=== PATIENT | female | born 1975 | race Two or more races ===

== ENCOUNTER 2024-12-04 07:50 | Emergency (ER) | payer MEDICAID, OTHER ==
[~2024-12-04] VITALS: Ht 165.1 cm; Wt 84.7 kg
[2024-12-04 08:17] VITALS: BP 134/83; PULSE 84; RESP 18; TEMP 97.9; O2SAT 97
--- NOTE | 2024-12-04 08:47 | DVH ---
EXAM: XY CHEST TWO VIEWS ROUTINE CLINICAL HISTORY: SOB COUGH COMPARISON: None TECHNIQUE: Frontal and lateral view of the chest was obtained FINDINGS: Lines and Tubes: None Lungs: No focal consolidation. Pleura: No effusion. No pneumothorax. Cardiomediastinal contours: Unremarkable Bones: No acute osseous abnormality. IMPRESSION: No acute cardiopulmonary disease.
[2024-12-04] MEDS: ALBUTEROL SULF 2.5 MG/0.5ML(0.5%) NEB SOLN NEB ONE (08:49)
[2024-12-04] MEDS: IPRATROPIUM BROM 0.5 MG/2.5ML INH SOL NEB ONE (08:51)
[2024-12-04] MEDS ORDERED: CETI5TAB6 PO (09:12)
[2024-12-04] MEDS ORDERED: ALBU108A5 IN (09:12)
[2024-12-04] MEDS ORDERED: METH4PAK PO (09:12)
--- NOTE | 2024-12-04 09:12 | ED.PDOC ---
SOB-HPI HPI Comments 49-year-old female presents for a possible asthma exacerbation that started two days ago. No history of asthma in the past. Only has a history of hyperlipidemia. Possible onset:recent URI Not taken medication for the symptoms listed above Denies nighttime awakenings. Denies use of inhaler. Denies hospitalizations. Denies fevers chills night sweats regular cough. 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 Family History Family History: Reviewed,noncontributory to illness Social History Smoker: Non-Smoker Alcohol: Denies ETOH Use Drugs: Denies Drug Use All Other Systems: Reviewed and Negative (Per HPI) Physical Exam General Appearance: No Apparent Distress, Normal HEENT: Normal ENT Inspection, Pharynx Normal, TMs Normal Neck: Full Range of Motion, Non-Tender, Normal, Normal Inspection Respiratory: Chest Non-Tender, No Accessory Muscle Use, No Respiratory Distress, Wheezing Cardiovascular: No Edema, No JVD, No Murmur, No Gallop, Normal Peripheral Pulses, Regular Rate/Rhythm Breast Exam: Deferred Gastrointestinal: No Organomegaly, Non Tender, No Pulsatile Mass, Normal Bowel Sounds, Soft Genitalia: Deferred Pelvic: Deferred Rectal: Deferred Extremities: No calf tenderness, Normal capillary refill, Normal inspection, Normal range of motion, Non-tender, No pedal edema Musculoskeletal : Apperance: Normal Neurologic: Alert, manufacturing helper II-XII nml as Tested, No Motor Deficits, Normal Affect, Normal Mood, No Sensory Deficits Cerebellar Function: Normal Reflexes: Normal Skin: Dry, Normal Color, Warm Lymphatic: No Adenopathy Was a procedure done? Was a procedure done?: No Differential Dx Differential Diagnosis: Asthma X-Ray, Labs, Meds, VS Vital Signs Date Time Temp Pulse Resp B/P (MAP) Pulse Ox O2 Delivery O2 Flow Rate FiO2 12/04/24 08:17 84 18 97 Room Air 12/04/24 08:17 97.9 84 18 134/83 (100) 97 97.9 12/04/24 08:09 18 97 Room Air* 0 21 12/04/24 08:06 97.9 84 18 134/83 (100) 97 97.9 Lab Test 12/04/24 08:45 Range/Units White Blood Count Pending Red Blood Count Pending Hemoglobin Pending Hematocrit Pending Mean Corpuscular Volume Pending Mean Corpuscular Hemoglobin Pending Mean Corpuscular Hemoglobin Concent Pending Red Cell Distribution Width Pending Platelet Count Pending Mean Platelet Volume Pending Neutrophils (%) (Auto) Pending Lymphocytes (%) (Auto) Pending Monocytes (%) (Auto) Pending Basophils (%) (Auto) Pending Neutrophils # (Auto) Pending Lymphocytes # (Auto) Pending Monocytes # (Auto) Pending Sodium Level Pending Potassium Level Pending Chloride Level Pending Carbon Dioxide Level Pending Anion Gap Pending Blood Urea Nitrogen Pending Creatinine Pending Glomerular Filtration Rate Calc Pending BUN/Creatinine Ratio Pending Serum Glucose Pending Calcium Level Pending Current Medications Medications (Trade) Dose Ordered Sig/Ted Route Start Time Stop Time Status Last Admin Albuterol (Ventolin Medneb) 5 mg ONCE ONCE NEB 12/04/24 08:15 12/04/24 08:18 DC 12/04/24 08:49 Ipratropium Bradford (Atrovent Medneb) 0.5 mg ONCE ONCE NEB 12/04/24 08:15 12/04/24 08:18 DC 12/04/24 08:51 X-Ray, Labs, Meds, VS Comment Patient presents with cough and expiratory wheezing, without tachypnea and accessory muscle use but indicative of asthma exacerbation. Unclear cause of the asthma exacerbation. Differentials considered but not limited to: PNA, bronchiolitis, Foreign body airway obstruction, GERD. I also considered pulmonary embolism, CHF, COPD, however, this is less likely as the patients pulse oximetry is with normal limits and ambulating without difficulty. Chest x-ray was obtained, and interpreted independently by myself as not showing focal consolidations or lobar pneumonia. Discussed viral etiologies with the patient however viral testing was not indicated as it does not belt changer and the patient was overall well-a ppearing. While in the ED, the patient was treated with Multiple rounds of Albuterol and Atrovent On reevaluation symptoms improved with treatment in the ED. Vital signs and exam reassuring. Lungs clear no wheezing. No labored breathing. No signs of res piratory distress. Patient was prescribed a short course of steroids. Inhaler prescribed as needed. Strict return precautions were discussed. Follow up with PCP 2-3 days. Time of 1ST Reevaluation: 09:08 Reevaluation 1ST: Improved Patient Education/Counseling: Diagnosis, Treatment Family Education/Counseling: Diagnosis, Treatment Departure 1 Departure Time of Disposition: 09:11 Impression: Primary Impression: Asthma Qualified Codes: J45.21 - Mild intermittent asthma with (acute) exacerbation Disposition: HOME / SELF CARE / HOMELESS Condition: Fair e-Prescriptions Cetirizine Hcl (Cetirizine Hcl) 5 Mg Tab 10 MG PO DAILY for 30 Days, #60 TAB 0 Refills Prov: FIORDALIZA SANCHEZ NP 12/04/24 Albuterol Sulfate (Albuterol Sulfate Hfa) 108 Mcg/Act Aer 108 MCG IN Q6HP PRN for 30 Days, #1 AER 0 Refills Prov: FIORDALIZA SANCHEZ NP 12/04/24 Methylprednisolone (Medrol Dosepak) 4 Mg Gilbert 4 MG PO UD for 7 Days, #21 TAB 0 Refills UAD Prov: FIORDALIZA SANCHEZ NP 12/04/24 Critical Care Note Critical Care Time?: No Stability Stability form required: No Heart Score Heart Score: Heart Score Response (Comments) Value History N/A 0 EKG N/A 0 Age N/A 0 Risk Factors N/A 0 Troponin N/A 0 Total 0 FIORDALIZA SANCHEZ NP Dec 04, 2024 09:12
[2024-12-04 09:15] LABS: Basophils # (auto) 0.1 10 ^3/uL (0-0.2); Basophils % (auto) 0.9 % (0.0-2.0); Eosinophils # (auto) 1.3 10 ^3/uL (0-0.8); Eosinophils % (auto) 12.9 % (0.0-7.0); Hematocrit 43.8 % (36.0-46.0); Hemoglobin 14.9 g/dL (12.2-16.2); Lymphocytes # (auto) 2.7 10 ^3/uL (0.4-5.4); Lymphocytes % (auto) 26.8 % (10.0-50.0); Mean Corpuscular Hemoglobin 28.9 pg (28.0-32.0); Mean Corpuscular Volume 84.9 fL (80.0-100.0); Monocytes # (auto) 0.6 10 ^3/uL (0-1.3); Monocytes % (auto) 5.5 % (0.0-12.0); Neutrophils # (auto) 5.5 10 ^3/uL (1.6-8.6); Neutrophils % (auto) 53.9 % (37.0-80.0); Platelet Count (auto) 317 10^3/uL (140-450); Red Blood Cells 5.16 10^6/uL (4.0-5.20); Red Cell Distribution Width 13.5 % (11.8-14.3); White Blood Cell 10.1 10^3/uL (4.4-10.8)
[2024-12-04 09:23] LABS: Chloride 104 mmol/L (98-107); Potassium 4.2 mmol/L (3.5-5.1); Sodium 138 mmol/L (136-145)
[2024-12-04 09:24] LABS: Anion Gap 7 (5-15); Carbon Dioxide 27 mmol/L (20-31)
[2024-12-04 09:25] LABS: Calcium 10.3 mg/dL (8.7-10.4)
[2024-12-04 09:29] LABS: BUN/Creatinine Ratio 14.3 (10.0-20.0); Blood Urea Nitrogen 13 mg/dL (9-23)
[2024-12-04 09:30] LABS: Glucose 121 mg/dL (74-106)
== END 2024-12-04 09:16 | disposition home or self-care (01) ==
LOC: ER 07:50
DX: J45.909 Unspecified asthma, uncomplicated (principal); E78.5 Hyperlipidemia, unspecified
CPT/HCPCS: 36415; 71046; 80048; 85025; 94640

== ENCOUNTER 2024-12-20 21:46 | Emergency (ER) | payer MEDICAID ==
[~2024-12-20] VITALS: Ht 165.1 cm; Wt 83.6 kg
[~2024-12-20 21:46] MED LIST: ALBU108A5 IN; CETI5TAB6 PO; METH4PAK PO
--- NOTE | 2024-12-20 22:31 | DVH ---
CLINICAL INDICATION: Thumb/scaphoid concerns. Fall/trauma TECHNIQUE: 3 radiographic views of the right hand were obtained. Comparison: None FINDINGS/IMPRESSION: There is no evidence of acute fracture or dislocation. The visualized joint space is well maintained. The alignment is anatomical. There is no radiopaque foreign body.
[2024-12-20] MEDS ORDERED: IBUP-1455 PO (22:46)
--- NOTE | 2024-12-20 22:46 | ED.PDOC ---
Musculoskeletal HPI Comments This patient is a pleasant but morbidly obese 49-year-old female who arrives the ED today for evaluation of right-sided thumb and hand pain concerns for the past several days. Patient states she had a mechanical ground level fall and landed on her right hand. Patient states it subsequent to that event she has had some swelling and pain as well as difficulty moving her thumb. Patient denies any fever nausea or vomiting. Patient denies any head trauma. Vital signs were stable on arrival. Chief Complaint: Upper Extremity Time Seen by MD: 21:53 Primary Care Provider: n/a Reviewed Notes: Nurses Notes Allergies: Coded Allergies: NO KNOWN ALLERGIES (Unverified , 12/04/24) Home Meds Active Scripts Cetirizine Hcl (Cetirizine Hcl) 5 Mg Tab, 10 MG PO DAILY for 30 Days, #60 TAB 0 Refills Prov:FIORDALIZA SANCHEZ NP 12/04/24 Albuterol Sulfate (Albuterol Sulfate Hfa) 108 Mcg/Act Aer, 108 MCG IN Q6HP PRN for 30 Days, #1 AER 0 Refills Prov:FIORDALIZA SANCHEZ NP 12/04/24 Methylprednisolone (Medrol Dosepak) 4 Mg Gilbert, 4 MG PO UD for 7 Days, #21 TAB 0 Refills UAD Prov:FIORDALIZA SANCHEZ NP 12/04/24 Information Source: Patient Mode of Arrival: Ambulatory Location: Right Extremity Location: Hand Timing: Days Prehospital treatment: Pain Meds Severity: Moderate Able to Move Extremity: Yes Bear Weight: Fully Pain: Mild Hand Dominance: Right Mechanism: FOOSH Circumstances: Fall Onset of Symptoms: Spontaneous Symptoms: Swelling, Pain DVT Risk Factors: NONE Past Medical History PAST MEDICAL HISTORY: Denies Surgical History: Denies all surgeries 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 Family History Family History: Reviewed,noncontributory to illness Social History Smoker: Non-Smoker Alcohol: Denies ETOH Use Drugs: Denies Drug Use Constitutional: denies: chills, diaphoresis, fatigue, fever, malaise, sweats, weakness, others EENTM: denies: blurred vision, double vision, ear bleeding, ear discharge, ear drainage, ear pain, ear ringing, eye pain, eye redness, hearing loss, mouth pain, mouth swelling, nasal discharge, nose bleeding, nose congestion, nose pain, photophobia, tearing, throat pain, throat swelling, voice changes, others Respiratory: denies: cough, hemoptysis, orthopnea, SOB at rest, shortness of breath, SOB with excertion, stridor, wheezing, others Cardiovascular: denies: chest pain, dizzy spells, diaphoresis, Dyspnea on exertion, edema, irregular heart beat, left arm pain, lightheadedness, palpitations, PND, syncope, others Gastrointestinal: denies: abdomen distended, abdominal pain, blood streaked bowels, constipated, diarrhea, dysphagia, difficulty swallowing, hematemesis, melena, nausea, poor appetite, poor fluid intake, rectal bleeding, rectal pain, vomiting, others Genitourinary: denies: abnormal vagina bleeding, burning, dyspareunia, dysuria, flank pain, frequency, hematuria, incontinence, pain, , vagina discharge, urgency, others Neurological: denies: dizziness, fainting, headache, left sided numbness, left sided weakness, numbness, paresthesia, pre-existing deficit, right sided numbness, right sided weakness, seizure, speech problems, tingling, tremors, weakness, others Musculoskeletal: reports: others (Right hand pain); denies: back pain, gout, joint pain, joint swelling, muscle pain, muscle stiffness, neck pain Integumetry: denies: bruises, change in color, change in hair/nails, dryness, laceration, lesions, lumps, rash, wounds, others Allergic/Immunocompromised: denies: Difficulty Healing, Frequent Infections, Hives, Itching, others Hematologic/Lymphatic: denies: anemia, blood clots, easy bleeding, easy bruising, swollen glands, others Endocrine: denies: excessive hunger, excessive sweating, excessive thirst, excessive urination, flushing, intolerance to cold, intolerance to heat, unexplained weight gain, unexplained weight loss, others Psychiatric: denies: anxiety, bipolar disorder, depression, hopeless, panic disorder, schizophrenia, sleepless, suicidal, others Physical Exam General Appearance: Mild Distress ( moderate distress at time of evaluation. Patient declined the need for any pain medication while at the facility.), Normal HEENT: Normal ENT Inspection, Pharynx Normal, TMs Normal Neck: Full Range of Motion, Non-Tender, Normal, Normal Inspection Respiratory: Chest Non-Tender, Lungs Clear, No Accessory Muscle Use, No Respiratory Distress, Normal Breath Sounds Cardiovascular: No Edema, No JVD, No Murmur, No Gallop, Normal Peripheral Pulses, Regular Rate/Rhythm Breast Exam: Deferred Gastrointestinal: No Organomegaly, Non Tender, No Pulsatile Mass, Normal Bowel Sounds, Soft Genitalia: Deferred Pelvic: Deferred Rectal: Deferred Extremities: Other ( Diffuse edema noted to the webbing between 1st and 2nd digit of the right hand at the dorsal aspect. Tenderness to palpation up to the scaphoid. Possible mild ecchymosis. Moderate reduced range of motion. Distal neurovascularly intact.) Neurologic: Alert, No Motor Deficits, Normal Affect, Normal Mood, No Sensory Deficits Cerebellar Function: Normal Reflexes: Normal Skin: Dry, Normal Color, Warm Lymphatic: No Adenopathy Was a procedure done? Was a procedure done?: No Differential Diagnosis EXT Differential Diagnosis: Fracture, Sprain, Contusion, Strain X-Ray, Labs, Meds, VS Vital Signs Date Time Temp Pulse Resp B/P (MAP) Pulse Ox O2 Delivery O2 Flow Rate FiO2 12/20/24 21:53 98.4 81 16 127/90 (102) 98 98.4 X-Ray, Labs, Meds, VS Comment All studies performed the ED were evaluated by me personally. Imaging studies were unremarkable for any acute fractures of the metatarsals were scaphoid. Patient was provided with a an Ted wrap at discharge. Advised pain medication as needed as well as ice therapy. Time of 1ST Reevaluation: 22:44 Reevaluation 1ST: Improved Consultation: PCP Patient Education/Counseling: Diagnosis, Treatment Family Education/Counseling: Diagnosis, Treatment Departure 1 Departure Time of Disposition: 22:44 Impression: Primary Impression: Sprain of right thumb Additional Impression: Hand contusion Disposition: HOME / SELF CARE / HOMELESS Condition: Stable Additional Instructions: Advised pain medication as needed as well as ice therapy. e-Prescriptions Ibuprofen Micronized (Ibuprofen) 800 Mg Tab 800 MG PO Q8HP PRN, #20 TAB Prov: DMITRY HARMAN PAC 12/20/24 Discharged With: Self, Friend Critical Care Note Critical Care Time?: No Stability Stability form required: No Heart Score Heart Score: Heart Score Response (Comments) Value History N/A 0 EKG N/A 0 Age N/A 0 Risk Factors N/A 0 Troponin N/A 0 Total 0 DMITRY HARMAN PAC December 20, 2024 22:46
[2024-12-20 22:57] VITALS: BP 124/85; PULSE 64; RESP 14; TEMP 97.7; O2SAT 97
== END 2024-12-20 23:06 | disposition home or self-care (01) ==
LOC: ER 21:46
DX: S63.601A Unspecified sprain of right thumb, initial encounter (principal); E66.01 Morbid (severe) obesity due to excess calories; Z68.30 Body mass index [BMI] 30.0-30.9, adult; Z79.899 Other long term (current) drug therapy; W18.30XA Fall on same level, unspecified, initial encounter; Y93.89 Activity, other specified; Y92.89 Other specified places as the place of occurrence of the external cause; Y99.8 Other external cause status
CPT/HCPCS: 73130